=== PATIENT | female | born 1975 | race Caucasian/White ===

== ENCOUNTER → 2017-04-04 | Day surgery (SDC) | payer OTHER ==
[~2017-04-04] VITALS: Ht 172.7 cm; Wt 76.2 kg
[~2017-04-04] MED LIST: BACTRIM DS TAB1 EACH PO; CEPHALEXIN500 M3 PO; CLARITIN10 M1 PO; DENAVIR5 GM TOP; DIFLUCAN150 M1 PO; PROAIR HFA8.5 GM INH; SPIRONOLACTONE100 M1 PO
--- NOTE | 2017-04-08 19:18 | Operative Report ---
Operative/Inv Procedure Report Surgery Date: 04/04/17 Name of Procedure: Diagnostic laparoscopy left ovarian cystectomy aspiration of cul-de-sac fluid Pre-Operative Diagnosis: Pelvic pain Post-Operative Diagnosis: Ruptured ovarian cyst evidence simple cyst and adhesions Estimated Blood Loss: less than 50ml Surgeon/Supervisor Reclamation: PRASANNA OJEDA MD Anesthesia: general endotracheal tube Operative/Procedure Note Note: Procedure note patient was taken the operating and placed on position after adequate anesthesia patient placed in dorsolithotomy position the vagina from dorsal fashion bladder was catheterized examination under anesthesia performed this point a single-tooth tenaculum was placed on the Intralipid cervix gentle downward traction the colon cannula remained in Place patient tolerated that well at this point surgeon regowned and gloved the abdominal part of the case at the level of the umbilicus a stab incision was made to allow for the entry of Veress needle the abdomen was insufflated possibly fully Z CO2 to liver edge dullness at which point the Veress needle was removed a 10 mm trocar was inserted atraumatically at the umbilicus that sheath replacement remained in place trocar was removed through the sheath a laparoscope was placed under direct visualization a 5 mm trocar was placed to bring minutes of symptoms pubis in the midline through that I port was placed to remove fluid which was sent off to cytology this point a stab incision was made into the ovary the fluid was removed it was clear and that was sent to pathology patient tolerated this well the wall was ablated using a J-hook patient hard that well I at this point wants was removed under direct visualization as well as a maximum amount of CO2 the incision at the umbilicus was oversewn using 0 the fascia both incisions 30 was used in interrupteds to reapproximate skin underneath the skin of both incisions Marcaine was injected sterile dressings were applied at this point the Martins was removed wants was removed from the vagina the Fowler was removed the patient was returned spine position she was awakened from anesthesia extubated and transported recovery room awake alert counts correct's. Findings: Normal uterus normal ovaries bilaterally simple cyst 4 cm on the left some serous fluid in the cul-de-sac consistent with previously ruptured on cyst eyes some filmy adhesions from the peritoneal side wall to the left tube otherwise normal anatomy
== END ==
LOC: STS 01:20
DX: N83.291 Other ovarian cyst, right side (principal); K66.0 Peritoneal adhesions (postprocedural) (postinfection); R10.2 Pelvic and perineal pain; K59.00 Constipation, unspecified; R30.0 Dysuria
CPT/HCPCS: 88305; J0131; J0694; J1100; J2250; J2405